=== PATIENT | female | born 1945 | race African-American/Black ===

== ENCOUNTER 2016-05-15 12:32 | Emergency (ER) | payer OTHER ==
[2016-11-06] MEDS ORDERED: MIRALAX17 GM PO (14:32)
[2016-11-06] MEDS ORDERED: VENTOLIN HFA18 GM INH (14:33)
[2016-11-06] MEDS ORDERED: PERCOCET 5-3251 EACH PO (14:33)
[2016-11-06] MEDS ORDERED: PEPCID40 MG PO (14:34)
[2016-11-06] MEDS ORDERED: VITAMIN D1000 UNI1 PO (14:34)
[2016-11-06] MEDS ORDERED: SYNTHROID50 MCG PO (14:34)
[2016-11-06] MEDS ORDERED: DIOVAN160 MG PO (14:34)
[2016-11-06] MEDS ORDERED: LASIX20 MG PO (14:34)
[2016-11-06] MEDS ORDERED: ABILIFY10 MG PO (14:35)
[2016-11-06] MEDS ORDERED: DESYREL50 MG PO (14:35)
[2016-11-06] MEDS ORDERED: CYMBALTA 30MG C30 MG PO (14:35)
[2016-11-06] MEDS ORDERED: K-DUR20 MEQ PO (14:35)
[2016-11-06] MEDS ORDERED: METFORMIN HCL500 MG PO (14:36)
[2016-11-06] MEDS ORDERED: CERTAGEN1 EACH PO (14:37)
[2016-11-06] MEDS ORDERED: TRAMADOL HCL50 MG PO (14:38)
[2016-11-06] MEDS ORDERED: HCTZ12.5 MG PO (14:38)
[2016-11-06] MEDS ORDERED: FLAX SEED OIL1000 MG PO (14:38)
== END 2016-05-15 14:22 | disposition home or self-care (01) ==
LOC: FER 12:32
DX: L03.316 Cellulitis of umbilicus (principal); K21.9 Gastro-esophageal reflux disease without esophagitis; F48.9 Nonpsychotic mental disorder, unspecified; I10 Essential (primary) hypertension; Z79.899 Other long term (current) drug therapy; Z88.0 Allergy status to penicillin; Z91.013 Allergy to seafood; Z91.018 Allergy to other foods; Z88.5 Allergy status to narcotic agent; Z91.040 Latex allergy status; Z88.8 Allergy status to other drugs, medicaments and biological substances
CPT/HCPCS: 87070; 87077; 87186; 87205; 99283

== ENCOUNTER 2016-08-20 10:07 | Emergency (ER) | payer OTHER ==
[2016-11-06] MEDS ORDERED: MIRALAX17 GM PO (14:32)
[2016-11-06] MEDS ORDERED: PERCOCET 5-3251 EACH PO (14:33)
[2016-11-06] MEDS ORDERED: VENTOLIN HFA18 GM INH (14:33)
[2016-11-06] MEDS ORDERED: VITAMIN D1000 UNI1 PO (14:34)
[2016-11-06] MEDS ORDERED: DIOVAN160 MG PO (14:34)
[2016-11-06] MEDS ORDERED: SYNTHROID50 MCG PO (14:34)
[2016-11-06] MEDS ORDERED: PEPCID40 MG PO (14:34)
[2016-11-06] MEDS ORDERED: LASIX20 MG PO (14:34)
[2016-11-06] MEDS ORDERED: ABILIFY10 MG PO (14:35)
[2016-11-06] MEDS ORDERED: CYMBALTA 30MG C30 MG PO (14:35)
[2016-11-06] MEDS ORDERED: K-DUR20 MEQ PO (14:35)
[2016-11-06] MEDS ORDERED: DESYREL50 MG PO (14:35)
[2016-11-06] MEDS ORDERED: METFORMIN HCL500 MG PO (14:36)
[2016-11-06] MEDS ORDERED: CERTAGEN1 EACH PO (14:37)
[2016-11-06] MEDS ORDERED: TRAMADOL HCL50 MG PO (14:38)
[2016-11-06] MEDS ORDERED: FLAX SEED OIL1000 MG PO (14:38)
[2016-11-06] MEDS ORDERED: HCTZ12.5 MG PO (14:38)
== END 2016-08-20 13:53 | disposition home or self-care (01) ==
LOC: FER 10:07
DX: S83.92XA Sprain of unspecified site of left knee, initial encounter (principal); Z96.652 Presence of left artificial knee joint; I10 Essential (primary) hypertension
CPT/HCPCS: 73564; 99283

== ENCOUNTER 2020-07-18 09:45 | Emergency (ER) | payer MEDICARE, OTHER ==
[~2020-07-18 09:45] MED LIST: ABILIFY10 MG PO; ASPIRIN EC81 M1 PO; ASPIRIN325 MG PO; ATACAND16 MG PO; B COMPLEX1 EACH PO; CALCIUM600 MG PO; CERTAGEN1 EACH PO; COZAAR50 MG PO; CYMBALTA 30MG C30 MG PO; DESENEX85 GM TOP; DESYREL50 MG PO; DIOVAN160 MG PO; FENOFIBRATE145 MG PO; FEOSOL325 MG PO; FLAX SEED OIL1000 MG PO; HCTZ12.5 MG PO; HYDROCORTISONE30 G3 TOP; K-DUR20 MEQ PO; KETOROLAC TROME10 MG PO; LASIX20 MG PO; LOVAZA1 GM PO; METFORMIN HCL500 MG PO; MIRALAX17 GM PO; MUCINEX 600MG600 MG PO; PEPCID40 MG PO; PERCOCET 10/321 EACH PO; PERCOCET 5-3251 EACH PO; SARNA ANTI-ITC222 ML TOP; SYNTHROID50 MCG PO; TRAMADOL HCL50 MG PO; ULTRAM50 MG PO; VENTOLIN HFA18 GM INH; VITAMIN D1000 UNI1 PO
[2020-07-18 10:42] LABS: BASOPHIL 0.8 % (0-2); EOSINOPHIL 2.2 % (0-7); HCT 35.7 % (37.0-47.0); HGB 11.8 g/dl (12.5-16.0); LYMPHOCYTE 32.2 % (15-48); MCHC 33.1 g/dL (32.0-36.0); MCV 93.7 fL (78.0-100.0); MONOCYTE 6.7 % (0-12); MPV 8.3 fL (6.0-9.5); NEUTROPHIL 57.5 % (41-80); NRBC 0; PLT 353 K/uL (150-400); RBC 3.81 M/uL (4.20-5.40); RDW 14.6 % (11.5-14.0); WBC 8.7 K/uL (4.0-10.5)
[2020-07-18 11:57] LABS: PRO-BNP 19 pg/mL (<450)
[2020-07-18 12:04] LABS: ALBUMIN 3.2 g/dL (3.4-5.0); BILIRUBIN - TOTAL 0.4 mg/dL (0.2-1.0); GLOBULIN (CALCULATION) 4.5 g/dL; POTASSIUM 4.1 mmol/L (3.5-5.1); TOTAL PROTEIN 7.7 g/dL (6.4-8.2)
[2020-07-18 15:45] LABS: BILIRUBIN NEGATIVE (NEGATIVE); BLOOD NEGATIVE Ery/uL (NEGATIVE); CLARITY CLEAR (CLEAR); COLOR YELLOW (YELLOW); GLUCOSE (U) NORMAL (NORMAL); LEUKOCYTES NEGATIVE Leu/uL (NEGATIVE); NITRITE NEGATIVE (NEGATIVE); PROTEIN NEGATIVE (NEGATIVE); SPECIFIC GRAVITY 1.015 (1.001-1.030); UROBILINOGEN 0.2 mg/dL (0.2-1.0); pH 5.5 (5.0-9.0)
== END 2020-07-18 15:45 | disposition home or self-care (01) ==
LOC: FER 09:45
PROVIDERS: Emergency Medicine
DX: I11.0 Hypertensive heart disease with heart failure (principal); I50.9 Heart failure, unspecified; E11.9 Type 2 diabetes mellitus without complications; E78.5 Hyperlipidemia, unspecified; J45.909 Unspecified asthma, uncomplicated; Z87.891 Personal history of nicotine dependence
CPT/HCPCS: 36415; 71045; 80053; 81003; 83605; 83880; 84145; 84484; 85025; 85379; 87040; 93005; J1940

== ENCOUNTER 2020-08-12 13:03 | Emergency (ER) | payer MEDICARE, OTHER | END 2020-08-12 16:40 | disposition home or self-care (01) | LOC: FER 13:03 | DX: M25.562 Pain in left knee (principal); G89.29 Other chronic pain; E11.9 Type 2 diabetes mellitus without complications; I11.0 Hypertensive heart disease with heart failure; I50.9 Heart failure, unspecified; Z91.040 Latex allergy status; Z88.0 Allergy status to penicillin; Z88.8 Allergy status to other drugs, medicaments and biological substances | CPT/HCPCS: 73560 ==

== ENCOUNTER 2020-10-17 05:19 | Emergency (ER) | payer MEDICARE, OTHER ==
[2020-10-17 06:23] LABS: EOSINOPHIL 3.7 % (0-7); HCT 36.4 % (37.0-47.0); HGB 11.7 g/dl (12.5-16.0); LYMPHOCYTE 36.7 % (15-48); MCH 30.1 pg (25.0-31.0); MCHC 32.1 g/dL (32.0-36.0); MCV 93.6 fL (78.0-100.0); MONOCYTE 8.1 % (0-12); MPV 8.1 fL (6.0-9.5); NEUTROPHIL 49.9 % (41-80); NRBC 0; PLT 327 K/uL (150-400); RBC 3.89 M/uL (4.20-5.40); RDW 14.7 % (11.5-14.0); WBC 8.8 K/uL (4.0-10.5)
[2020-10-17 06:36] LABS: BUN/CREAT RATIO (CALC) 15.6 RATIO; CREATININE 0.96 mg/dL (0.51-0.95); POTASSIUM 3.8 mmol/L (3.5-5.1)
[2020-10-17] MEDS ORDERED: TRIAMCINOLONE 080 GM TOP (09:29)
== END 2020-10-17 09:40 | disposition home or self-care (01) ==
LOC: FER 05:19
PROVIDERS: Emergency Medicine
DX: R22.42 Localized swelling, mass and lump, left lower limb (principal); R21 Rash and other nonspecific skin eruption; I50.9 Heart failure, unspecified; E11.9 Type 2 diabetes mellitus without complications; E03.9 Hypothyroidism, unspecified; Z90.710 Acquired absence of both cervix and uterus; Z88.0 Allergy status to penicillin; Z88.8 Allergy status to other drugs, medicaments and biological substances; Z88.5 Allergy status to narcotic agent; Z91.040 Latex allergy status; Z91.041 Radiographic dye allergy status
CPT/HCPCS: 36415; 80048; 85025; 85379; 93971

== ENCOUNTER 2020-11-02 15:53 | Emergency (ER) | payer MEDICARE, OTHER ==
[~2020-11-02 15:53] MED LIST changes: +TRIAMCINOLONE 080 GM TOP
[2020-11-02 17:55] LABS: BASOPHIL 0.9 % (0-2); EOSINOPHIL 4.7 & (0-7); HCT 38.9 % (37.0-47.0); HGB 12.6 g/dl (12.5-16.0); LYMPHOCYTE 43.5 % (15-48); MCH 29.9 pg (25.0-31.0); MCHC 32.4 g/dL (32.0-36.0); MCV 92.4 fL (78.0-100.0); MONOCYTE 10.6 % (0-12); MPV 7.8 fL (6.0-9.5); PLT 391 K/uL (150-400); RBC 4.21 M/uL (4.20-5.40); RDW 14.4 % (11.5-14.0); WBC 6.87 K/uL (4.0-10.5)
[2020-11-02 18:05] LABS: CORONAVIRUS 2019 SARS-COV-2 NEGATIVE (NEGATIVE); INFLUENZA A NAA NEGATIVE (NEGATIVE)
[2020-11-02 18:14] LABS: ALBUMIN 3.6 g/dL (3.4-5.0); BILIRUBIN - TOTAL 0.2 mg/dL (0.2-1.0); BUN/CREAT RATIO (CALC) 15.8 RATIO; CREATININE 1.52 mg/dL (0.51-0.95); GLOBULIN (CALCULATION) 5.1 g/dL; POTASSIUM 4.1 mmol/L (3.5-5.1); TOTAL PROTEIN 8.7 g/dL (6.4-8.2)
== END 2020-11-02 20:40 | disposition home or self-care (01) ==
LOC: FER 15:53
PROVIDERS: Internal Medicine
DX: N17.9 Acute kidney failure, unspecified (principal); E11.9 Type 2 diabetes mellitus without complications; I11.0 Hypertensive heart disease with heart failure; I50.9 Heart failure, unspecified; R05 Cough; Z20.822 Contact with and (suspected) exposure to COVID-19; Z88.0 Allergy status to penicillin; Z88.8 Allergy status to other drugs, medicaments and biological substances
CPT/HCPCS: 36415; 70490; 80053; 85025; 87880; J7040; U0002

== ENCOUNTER 2021-02-19 08:43 | Emergency (ER) | payer MEDICARE, OTHER ==
[2021-02-19] MEDS ORDERED: PERCOCET 5-3251 EACH PO (13:01)
== END 2021-02-19 14:19 | disposition home or self-care (01) ==
LOC: FER 08:43
DX: M75.102 Unspecified rotator cuff tear or rupture of left shoulder, not specified as traumatic (principal); I10 Essential (primary) hypertension; E11.9 Type 2 diabetes mellitus without complications; Z79.4 Long term (current) use of insulin; Z88.0 Allergy status to penicillin; Z88.8 Allergy status to other drugs, medicaments and biological substances; Z91.041 Radiographic dye allergy status
CPT/HCPCS: 73030

== ENCOUNTER 2021-06-16 11:28 | Emergency (ER) | payer OTHER, MEDICARE ==
[2021-06-16] MEDS ORDERED: NORCO 5-325 TA1 EACH PO (13:48)
[2021-06-16] MEDS ORDERED: PERCOCET 5-3251 EACH PO (13:54)
== END 2021-06-16 14:09 | disposition home or self-care (01) ==
LOC: FER 11:28
DX: S43.402A Unspecified sprain of left shoulder joint, initial encounter (principal); S70.12XA Contusion of left thigh, initial encounter; Z88.0 Allergy status to penicillin; V49.9XXA Car occupant (driver) (passenger) injured in unspecified traffic accident, initial encounter; Z28.311 Partially vaccinated for COVID-19
CPT/HCPCS: 73030; 73060; 73090

== ENCOUNTER 2021-08-23 15:18 | Emergency (ER) | payer MEDICARE, OTHER ==
[~2021-08-23 15:18] MED LIST changes: +NORCO 5-325 TA1 EACH PO
[2021-08-23 16:18] LABS: BASOPHIL 0.9 % (0-2); EOSINOPHIL 4.4 % (0-7); HCT 36.1 % (37.0-47.0); HGB 11.5 g/dl (12.5-16.0); LYMPHOCYTE 36.6 % (15-48); MCH 29.8 pg (25.0-31.0); MCHC 31.9 g/dL (32.0-36.0); MCV 93.5 fL (78.0-100.0); MONOCYTE 8.8 % (0-12); MPV 8.2 fL (6.0-9.5); NEUTROPHIL 48.9 % (41-80); NRBC 0; PLT 366 K/uL (150-400); RBC 3.86 M/uL (4.20-5.40); RDW 14.3 % (11.5-14.0)
[2021-08-23 16:39] LABS: ALBUMIN 3.3 g/dL (3.4-5.0); BILIRUBIN - TOTAL 0.3 mg/dL (0.2-1.0); BUN/CREAT RATIO (CALC) 17.8 RATIO; CREATININE 1.18 mg/dL (0.51-0.95); GLOBULIN (CALCULATION) 4.8 g/dL; POTASSIUM 3.7 mmol/L (3.5-5.1); TOTAL PROTEIN 8.1 g/dL (6.4-8.2)
[2021-08-23] MEDS ORDERED: LASIX40 MG PO (17:50)
[2021-08-23] MEDS ORDERED: K-TAB ER20 MEQ PO (17:50)
== END 2021-08-23 18:39 | disposition home or self-care (01) ==
LOC: FER 15:18
PROVIDERS: Emergency Medicine
DX: R60.0 Localized edema (principal); I50.9 Heart failure, unspecified; N18.9 Chronic kidney disease, unspecified; Z79.899 Other long term (current) drug therapy; Z88.0 Allergy status to penicillin; Z88.5 Allergy status to narcotic agent; Z88.8 Allergy status to other drugs, medicaments and biological substances
CPT/HCPCS: 36415; 71045; 80053; 83880; 84484; 85025; 93005; J1940